=== PATIENT | male | born 1960 | race Caucasian/White ===

== ENCOUNTER → 2018-06-03 08:36 | Outpatient (CLI) | payer OTHER, SELFPAY ==
--- NOTE | 2018-06-03 | DI.RAD.S_ITS ---
PROCEDURE: XR HIP W PEL IF DONE LT 2V INDICATIONS: LEFT HIP PAIN TECHNIQUE: 2 views of the hip were acquired. COMPARISON: None. FINDINGS: Bones: No fractures or dislocations. No suspicious bony lesions. The visualized pelvic ring appears intact. Soft tissues: No suspicious soft tissue calcifications or masses. IMPRESSION: No acute radiographic findings. If there is continued pain, followup exam or additional imaging such as MRI or CT could be performed for further assessment. Dictated by: Michelle Johns M.D. on 06/03/2018 at 10:14 Approved by: Michelle Johns M.D. on 06/03/2018 at 10:15
== END ==
PROVIDERS: PCP Family Medicine; Visit Provider Family Medicine
DX: M25.552 Pain in left hip (principal)
CPT/HCPCS: 73502

== ENCOUNTER → 2018-06-17 10:06 | Outpatient (CLI) | payer OTHER, SELFPAY ==
--- NOTE | 2018-06-17 | DI.RAD.S_ITS ---
PROCEDURE: XR CERVICAL SPINE 2V OR 3V INDICATIONS: NUMBNESS AND TINGLING LEFT NECK FOR 8 MONTHS TECHNIQUE: 3 view(s) of the cervical spine were acquired. COMPARISON: [facility], , CLAVICLE RIGHT 2 VIEWS, 06/22/2008, 10:26. FINDINGS: Bones: No fractures or dislocations to the C7 level. The lateral masses of C1 appear intact on the odontoid view. No suspicious bony lesions. Diffuse facet arthropathy. Diffuse moderate disc space narrowing throughout the cervical spine with relative sparing of C2-C3. Endplate sclerosis and spurring. Trace retrolisthesis of C4 on C5 trace anterolisthesis of C2 on C3. Soft tissues: No prevertebral soft tissue swelling. Bilateral carotid calcifications IMPRESSION: Diffuse multilevel cervical disc degeneration as above, and facet arthropathy. Trace retrolisthesis of C4 on C5 trace anterolisthesis of C2 on C3. Dictated by: Curt Gipson M.D. on 06/17/2018 at 11:53 Approved by: Curt Gipson M.D. on 06/17/2018 at 12:04
== END ==
PROVIDERS: PCP Family Medicine; Visit Provider Family Medicine
DX: R20.0 Anesthesia of skin (principal); R20.2 Paresthesia of skin; M50.30 Other cervical disc degeneration, unspecified cervical region; M47.816 Spondylosis without myelopathy or radiculopathy, lumbar region
CPT/HCPCS: 72040

== ENCOUNTER 2019-01-23 07:10 | Emergency (ER) | payer OTHER, SELFPAY ==
[2019-01-23 07:20] VITALS: BP 131/72; PULSE 70; RESP 18; TEMP 36.6; O2SAT 97; BMI 25.8
--- NOTE | 2019-01-23 07:23 | ED.UPPEXIN ---
HPI - Extremity Injury (Upper) General Chief Complaint: Extremity Injury, Upper Stated Complaint: left arm swelling/pain Time Seen by Provider: 01/23/19 07:13 Source: patient Mode of arrival: ambulatory Limitations: no limitations History of Present Illness HPI narrative: Pleasant 58-year-old male comes to the emergency department with complaint of pain in his left forearm and swelling of the lower upper arm. Patient states yesterday he was lifting a 4 x 8, he states that he felt pressure and then a pop and pain in his distal arm just before the elbow. He states that he noticed sudden swelling of the arm and he feels like he has a little bit weaker on that side compared to the other. Patient states the pain is resolved. His symptoms have not improved. This occurred yesterday in the afternoon but he came in for evaluation. He denies any numbness or tingling in his arm except right over the site of swelling. He has not noted any bruising. He denies any other medical problems, no prior surgeries, no allergies to medications. No tobacco, drinks alcohol daily 1-3 drinks, no illicit. This occurred at [employer] that he works at. Review of Systems Review of Systems ROS Unobtainable: All systems reviewed & are unremarkable except as noted in HPI and below Constitutional Denies chills, Denies fever(s), Denies lethargy and Denies weakness Musculoskeletal Reports as per HPI, Denies arthralgias, Denies limited range of motion, Denies numbness, Denies tingling and Reports other (left arm swollen proximal to elbow) Integumentary/Breasts Denies rash, Denies unusual bruising and Denies wounds Neurologic Denies numbness, Denies tingling and Denies weakness [facility] Social History (Updated 01/23/19 @ 07:25 by Maribeth Pfeiffer DO) Smoking Status: Former smoker alcohol intake: current substance use type: does not use Exam Narrative Exam Narrative: GENERAL: Alert and oriented x three, thin, well-appearing male in no acute distress. HEENT: Head normocephalic, atraumatic, EOMI, pupils reactive, face symmetric, moist mucous membranes NECK: Supple, full range of motion CARDIOVASCULAR: Regular rate and rhythm without murmurs, rubs or gallops. RESPIRATORY: Breath sounds equal bilaterally, no wheezes rales or rhonchi. ABDOMEN: Soft, nontender. Normoactive bowel sounds all 4 quadrants. No guarding or rebound, rigidity, no mass EXTREMITIES: Normal range of motion although patient is anxious about fully extending his arm, he states that he feels like there is a tug, patient is able to flex without issue, he has no bony tenderness with palpation of the upper extremity. He has 2+ radial pulses bilaterally. Extender is equal bilaterally. Patient has mild decrease in strength left in comparison to right with straight arm raise and flexion at the elbow, no clubbing or edema. Neurovascularly intact NEUROLOGICAL: Cranial nerves II through XII grossly intact. Moving all extremities SKIN: Warm, dry, no petechiae, no rashes or lesions. Initial Vital Signs Initial Vital Signs: Vital Signs Temperature 97.8 F 01/23/19 07:20 Pulse Rate 70 01/23/19 07:20 Respiratory Rate 18 01/23/19 07:20 Blood Pressure 131/72 01/23/19 07:20 Pulse Oximetry 97 01/23/19 07:20 Course Vital Signs - 8 hr 01/23/19 07:20 Temperature 97.8 F Pulse Rate 70 Respiratory Rate 18 Blood Pressure 131/72 Pulse Oximetry 97 MDM - Extremity Injury (Upper) MDM Narrative Medical decision making narrative: I spoke with Dr. Robb who for patient to be in a sling, for able to obtain MRI for a proximal biceps tear this would be helpful. Patient and I discussed plan for follow-up outpatient. Unable to in MRI at this time and patient is not sure if he is doing this through L&I at this time. Patient is otherwise neurologically intact. Precautions were given as well as a work note until he is cleared by Orthopedic surgery. Discharge Plan Departure Patient Disposition: Home Clinical Impression: Biceps tendon tear Discharge Date/Time: 01/23/19 08:09 Interventions: ED Discharge Assessment Last Done: 01/23/19 08:09 Activity Restrictions/Additional Instructions: Follow-up with Orthopedic surgery in the next 3-5 days. Call for an appointment today. You may take ibuprofen up to 800 mg and/or Tylenol up to a 1000 mg every 8 hours. Elevated affected body part to decrease swelling as needed. No heavy lifting or straining your arm. OK to use ice pack on the affected body part. Use for 15-20 minutes each time, for 5-6x per day. If you develop worsening pain, numbness, tingling, discoloration of the affected body part, loosen sling as needed, and either see your doctor for an urgent re-assessment, or return to the Emergency Department. Return to the Emergency Department for any new or worsening symptoms. Referrals: Jalil Espinosa MD [Primary Care Provider] - Jim Robb MD [Physician] - Stand Alone Forms: Work Release Note
--- NOTE | 2019-01-23 07:30 | ED_ITS ---
HPI - Extremity Injury (Upper) General Chief Complaint: Extremity Injury, Upper Stated Complaint: left arm swelling/pain Time Seen by Provider: 01/23/19 07:13 Source: patient Mode of arrival: ambulatory Limitations: no limitations History of Present Illness HPI narrative: Pleasant 58-year-old male comes to the emergency department with complaint of pain in his left forearm and swelling of the lower upper arm. Pat des states yesterday he was lifting a 4 x 8, he states that he felt pressure and then a pop and pain in his distal arm just before the elbow. He states that he noticed sudden swelling of the arm and he feels like he has a little bit weaker on that side compared to the other. Patient states the pain is resolved. His symptoms have not improved. This occurred yesterday in the afternoon but he came in for evaluation. He denies any numbness or tingling in his arm except right over the site of swelling. He has not noted any bruising. He denies any other medical problems, no prior surgeries, no allergies to medications. No tobacco, drinks alcohol daily 1-3 drinks, no illicit. This occurred at [employer] that he works at. Review of Systems Review of Systems ROS Unobtainable: All systems reviewed & are unremarkable except as noted in HPI and below Constitutional Denies chills, Denies fever(s), Denies lethargy and Denies weakness Musculoskeletal Reports as per HPI, Denies arthralgias, Denies limited range of motion, Denies numbness, Denies tingling and Reports other (left arm swollen proximal to elbow) Integumentary/Breasts Denies rash, Denies unusual bruising and Denies wounds Neurologic Denies numbness, Denies tingling and Denies weakness REPLACED BY [facility] Social History (Updated 01/23/19 @ 07:25 by Maribeth Pfeiffer DO) Smoking Status: Former smoker alcohol intake: current substance use type: does not use Exam Narrative Exam Narrative: GENERAL: Alert and oriented x three, thin, well-appearing male in no acute distress. HEENT: Head normocephalic, atraumatic, EOMI, pupils reactive, face symmetric, moist mucous membranes NECK: Supple, full range of motion CARDIOVASCULAR: Regular rate and rhythm without murmurs, rubs or gallops. RESPIRATORY: Breath sounds equal bilaterally, no wheezes rales or rhonchi. ABDOMEN: Soft, nontender. Normoactive bowel sounds all 4 quadrants. No guarding or rebound, rigidity, no mass EXTREMITIES: Normal range of motion although patient is anxious about fully extending his arm, he states that he feels like there is a tug, patient is able to flex without issue, he has no bony tenderness with palpation of the upper extremity. He has 2+ radial pulses bilaterally. Registered Massage Therapist is equal bilaterally. Patient has mild decrease in strength left in comparison to right with straight arm raise and flexion at the elbow, no clubbing or edema. Neurovascularly intact NEUROLOGICAL: Cranial nerves II through XII grossly intact. Moving all extremities SKIN: Warm, dry, no petechiae, no rashes or lesions. Initial Vital Signs Initial Vital Signs: Vital Signs Temperature 97.8 F 01/23/19 07:20 Pulse Rate 70 01/23/19 07:20 Respiratory Rate 18 01/23/19 07:20 Blood Pressure 131/72 01/23/19 07:20 Pulse Oximetry 97 01/23/19 07:20 Course Vital Signs - 8 hr 01/23/19 07:20 Temperature 97.8 F Pulse Rate 70 Respiratory Rate 18 Blood Pressure 131/72 Pulse Oximetry 97 MDM - Extremity Injury (Upper) MDM Narrative Medical decision making narrative: I spoke with Dr. Robb who for patient to be in a sling, for able to obtain MRI for a proximal biceps tear this would be helpful. Patient and I discussed plan for follow-up outpatient. Unable to in MRI at this time and patient is not sure if he is doing this through L&I at this time. Patient is otherwise neurologically intact. Precautions were given as well as a work note until he is cleared by Orthopedic surgery. Discharge Plan Departure Patient Disposition: Home Clinical Impression: Biceps tendon tear Discharge Date/Time: 01/23/19 08:09 Interventions: ED Discharge Assessment Last Done: 01/23/19 08:09 Activity Restrictions/Additional Instructions: Follow-up with Orthopedic surgery in the next 3-5 days. Call for an appointment today. You may take ibuprofen up to 800 mg and/or Tylenol up to a 1000 mg every 8 hours. Elevated affected body part to decrease swelling as needed. No heavy lifting or straining your arm. OK to use ice pack on the affected body part. Use for 15-20 minutes each time, for 5-6x per day. If you develop worsening pain, numbness, tingling, discoloration of the affected body part, loosen sling as needed, and either see your doctor for an urgent re-assessment, or return to the Emergency Department. Return to the Emergency Department for any new or worsening symptoms. Referrals: Jalil Espinosa MD [Primary Care Provider] - Jim Robb MD [Physician] - Stand Alone Forms: Work Release Note
[2019-01-23 08:09] VITALS: BP 109/74; PULSE 70; RESP 18; O2SAT 99
== END 2019-01-23 08:09 | disposition home or self-care (01) ==
PROVIDERS: Emergency Provider Emergency Medicine; Family Provider Family Medicine; PCP Family Medicine
DX: S46.212A Strain of muscle, fascia and tendon of other parts of biceps, left arm, initial encounter (principal); X50.9XXA Other and unspecified overexertion or strenuous movements or postures, initial encounter; Y99.0 Civilian activity done for income or pay
CPT/HCPCS: 99282

== ENCOUNTER 2020-02-16 09:59 | Emergency (ER) | payer OTHER, SELFPAY ==
[2020-02-16 10:01] VITALS: BP 171/94; PULSE 94; RESP 11; TEMP 37.1; O2SAT 96; BMI 27.1
--- NOTE | 2020-02-16 10:20 | ED.UPPEXIN ---
HPI - Extremity Injury (Upper) General Chief Complaint: Extremity Injury, Upper Stated Complaint: Injured right shoulder at work Time Seen by Provider: 02/16/20 10:13 Source: patient Mode of arrival: Ambulatory Limitations: no limitations History of Present Illness HPI narrative: Patient complains of right shoulder pain due to injury at work yesterday. Help lifting a door. Patient is right handed. Denies any numbness tingling or weakness. No elbow wrist or hand pain. Pain is anterior lateral right shoulder. No skin injury. Pain with abduction and forward flexion. Patient seen by Orthopedics for work related injury 2 years ago for the left bicep. He does have orthopedic care through [facility]. Blood pressure noted. No history of high blood pressure. Patient states right shoulder does hurt a lot. May be pain driven elevated blood pressure. Related Data Allergies Allergy/AdvReac Type Severity Reaction Status Date / Time No Known Drug Allergies Allergy Verified 02/16/20 10:04 Review of Systems Review of Systems Narrative: GENERAL: Denies chills, fatigue, malaise, fever, sweats. MUSCULOSKELETAL: Complaint joint pain and muscle pain SKIN: Denies rash, skin lesions, or other NEUROLOGIC: Denies weakness, or numbness or tingling PSYCHIATRIC: No concerning psychosocial issues. ROS Unobtainable: All systems reviewed & are unremarkable except as noted in HPI and below Patient History Social History Smoking Status: Current some day smoker alcohol intake: current substance use type: does not use Smoking Status: Current some day smoker alcohol intake frequency: 3 or more drinks per day Substance Use Type: does not use Exam Narrative Exam Narrative: GENERAL: patient appears stated age. Well-nourished, well-developed patient, in no distress, not toxic HEAD: Atraumatic. Normocephalic. EXTREMITIES: Examination right upper extremity limb is warm soft and pink with strong lab assistant in radial pulse with light touch intact to the deltoid fingertips and thumb. Nontender elbow and wrist. Strong lab assistant.. Mild tenderness of the anterior lateral right shoulder, no drop upper deformity. Increased pain with forward flexion and abduction of the shoulder. Increased pain with raising hand above the head but is able to do so. Pain with bring right hand behind back NEURO: AOx3. SKIN: No rash or erythema of visible areas PSYCH: Not anxious, is cooperative Initial Vital Signs Initial Vital Signs: Vital Signs Temperature 98.7 F 02/16/20 10:01 Pulse Rate 94 H 02/16/20 10:01 Respiratory Rate 11 L 02/16/20 10:01 Blood Pressure 171/94 H 02/16/20 10:01 Pulse Oximetry 96 02/16/20 10:01 Course Orders Ordered: ED Orders 02/16/20 10:19 XR shoulder RT min 2V Stat Reevaluation(s) Reevaluation #1: Pain is controlled. Blood pressure repeated. Blood pressure improved. L and I form completed by nd Time: 11:57 Vital Signs Vital signs: Vital Signs - 8 hr 02/16/20 10:01 02/16/20 11:59 02/16/20 12:05 Temperature 98.7 F Pulse Rate 94 H 80 81 Respiratory Rate 11 L 16 18 Blood Pressure 171/94 H 145/90 H 149/96 H Pulse Oximetry 96 98 96 MDM - Extremity Injury (Upper) Differential Diagnosis Differential diagnosis: Likely other (Right shoulder strain/rotator strain/muscle strain) Imaging Data Extremity x-ray #1: Radiologist's Impression: [address] [address] XRay Report Signed Patient: Royce Figueroa JMR#: [id number] : 9Acct:[id number] Age/Sex: 59 / MDate of Service: 02/16/20 Loc: ED Accession Number: [id number] Procedure: XR shoulder RT min 2V Ordering Provider: Jose Cisneros MD PROCEDURE: XR SHOULDER RT MIN 2V INDICATIONS: pain/injury TECHNIQUE: 3 views of the shoulder were acquired. COMPARISON: [facility], [facility], CLAVICLE RIGHT 2 VIEWS, 06/22/2008, 10:26. FINDINGS: Bones: No definite fractures or dislocations. Well corticated ossicle adjacent to the AC joint is unchanged since 2007. No suspicious bony lesions. Visualized ribs appear intact. Soft tissues: No suspicious soft tissue calcifications. IMPRESSION: No acute osseous abnormality. 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 Dictated by: Moises Moseley M.D. on 02/16/2020 at 11:28 Approved by: Moises Moseley M.D. on 02/16/2020 at 11:32 MDM Narrative Medical decision making narrative: Patient able to contact his orthopedic provider from previous work related injury. Providers in [place]. Will have patient follow-up with the same provider Discharge Plan Departure Patient Disposition: Home Clinical Impression: Right shoulder strain Qualifiers: Encounter type: initial encounter Qualified Code(s): S46.911A - Strain of unspecified muscle, fascia and tendon at shoulder and upper arm level, right arm, initial encounter Discharge Date/Time: 02/16/20 12:06 Instructions: DI for Shoulder Sprain Activity Restrictions/Additional Instructions: See family doctor or call [facility] phone number is [phone] for office recheck regarding workmen's compensation. Work note for light duty left arm use only has been provided. May use ibuprofen or Tylenol for pain. Return if worse or if any questions or concerns Referrals: Jalil Espinosa MD [Primary Care Provider] - Stand Alone Forms: Work Release Note
[2020-02-16 11:59] VITALS: BP 145/90; PULSE 80; RESP 16; O2SAT 98
[2020-02-16 12:05] VITALS: BP 149/96; PULSE 81; RESP 18; O2SAT 96
== END 2020-02-16 12:06 | disposition home or self-care (01) ==
PROVIDERS: Emergency Provider Emergency Medicine; Family Provider Family Medicine; PCP Family Medicine
DX: S46.911A Strain of unspecified muscle, fascia and tendon at shoulder and upper arm level, right arm, initial encounter (principal); X50.0XXA Overexertion from strenuous movement or load, initial encounter; Y99.0 Civilian activity done for income or pay
CPT/HCPCS: 73030; 99283

== ENCOUNTER 2022-01-16 07:37 | Emergency (ER) | payer OTHER, SELFPAY ==
[2022-01-16 07:47] VITALS: BP 140/80; PULSE 93; RESP 12; TEMP 36.9; O2SAT 96; BMI 26.8
--- NOTE | 2022-01-16 07:51 | ED_ITS ---
HPI - Skin/Abscess/Foreign Bdy General Chief complaint: Extremity Problem,Nontraumatic Stated complaint: LARGE lump on left arm suddenly Time Seen by Provider: 01/16/22 07:43 Source: patient Mode of arrival: EMS History of Present Illness HPI narrative: Patient is a harvinder healthy 61-year-old male who presents with sudden onset of swelling of left elbow. He works in a [employer] are yd he denies hitting it. He said it was a normal elbow yesterday he did work a lot he does lot of lifting. He woke up this morning with significantly swollen. He has no redness no fever no pain with movement. Related Data Allergies Allergy/AdvReac Type Severity Reaction Status Date / Time No Known Drug Allergies Allergy Verified 01/16/22 07:50 Review of Systems Review of Systems Narrative: GENERAL: Denies chills,fever HEENT: Denies throat pain RESPIRATORY: Denies dyspnea, cough, wheezing CARDIOVASCULAR: Denies chest pain, palpitations GASTROINTESTINAL: Denies nausea, vomiting MUSCULOSKELETAL: See HPI SKIN: No rash, no laceration, no pruritus NEUROLOGIC: Denies weakness, dizziness, headache, numbness 8 point review of systems is negative except for those stated above and HPI Patient History Social History Smoking Status: Former smoker alcohol intake: current substance use type: does not use Smoking Status: Former smoker alcohol intake frequency: 3 or more drinks per day Substance Use Type: does not use Exam Initial Vital Signs Initial Vital Signs: Vital Signs Temperature 98.4 F 01/16/22 07:47 Pulse Rate 93 H 01/16/22 07:47 Respiratory Rate 12 01/16/22 07:47 Blood Pressure 140/80 01/16/22 07:47 Pulse Oximetry 96 01/16/22 07:47 Oxygen Delivery Method 01/16/22 07:47 GENERAL: Denies chills,fever HEENT: Denies throat pain RESPIRATORY: Denies dyspnea, cough, wheezing CARDIOVASCULAR: Denies chest pain, palpitations GASTROINTESTINAL: Denies nausea, vomiting MUSCULOSKELETAL: See HPI SKIN: No rash, no laceration, no pruritus NEUROLOGIC: Denies weakness, dizziness, headache, numbness 8 point review of systems is negative except for those stated above and HPI Procedures Bursa Procedure Side of body: left Site of Procedure: olecranon bursa XRAY Obtained: normal Antisepsis Used: Chlorhexidine Local Anesthetic: lidocaine 2% Amount of anesthesia used (mL): 10 Fluid obtained (mL): 0 Patient Tolerated Procedure: Well and No complications Additional Comments: Failed attempt. Use ultrasound as guidance as well. Course Orders Ordered: ED Orders 01/16/22 07:55 XR elbow LT min 3V Stat Discontinued Medications Ibuprofen (Ibuprofen 400 Mg Tablet) 800 mg PO NOW ONE Stop: 01/16/22 09:26 Last Admin: 01/16/22 09:32 Dose: 800 mg Documented By: LISE Lidocaine HCl (Lidocaine 2% Inj Mdv) 1 ml SUBCUT NOW ONE Stop: 01/16/22 07:52 Last Admin: 01/16/22 07:53 Dose: 1 ml Documented By: RAMA Vital Signs Vital signs: Vital Signs - 8 hr 01/16/22 07:47 Temperature 98.4 F Pulse Rate 93 H Respiratory Rate 12 Blood Pressure 140/80 Pulse Oximetry 96 Oxygen Delivery Method Room Air MDM - Skin/Abscess/Foreign Bdy Imaging Data Extremity x-ray #1: Radiologist's Impression: [address] [address] XRay Report Signed Patient: Royce Figueroa MR#: [id number] : 1960 Acct:[id number] Age/Sex: 61 / M Date of Service: 01/16/22 Loc: ED Accession Number: [id number] ?? Procedure: XR elbow LT min 3V Ordering Provider: Lore Perla D.O. PROCEDURE:? XR ELBOW LT MIN 3V ? INDICATIONS:? swelling no trauma ? TECHNIQUE:? 3 views of the elbow were acquired.? ? COMPARISON:? None. ? FINDINGS:? ? Bones:? No fractures or dislocations.? No suspicious bony lesions.? Small degenerative osteophytes are noted the elbow. ? Soft tissues:? No elbow joint effusion.? No suspicious soft tissue calcifications.? ? ? IMPRESSION:? No visualized acute fracture or dislocation. However, if clinical concern and/or pain persist, short interval imaging followup in 7-10 days is recommended, as occult injury cannot be definitively excluded. ? ? Dictated by: Keerthi Allan M.D. on 01/16/2022 at 9:08 ? ? MDM Narrative Medical decision making narrative: Patient had sudden onset swelling of left elbow seems to be more of a bursitis and fluid like. However failed attempt even with ultrasound guidance of drainage. It is not erythematous at this time not septic. However instructed patient to monitor very closely. based on history seems like it should be fluid however ultrasound guided drainage did show a clear pocket possible lipoma x-ray does not show a joint effusion. Discharge Plan Departure Patient Disposition: Home Clinical Impression: Bursitis Instructions: Bursitis Activity Restrictions/Additional Instructions: *You have been diagnosed with bursitis *What to do: At this time we are unsuccessful in getting fluid out of her elbow. Please continue to monitor apply pressure ibuprofen as needed. *Continue to take medications as directed Ibuprofen 600 mg every 6 hours if needed for [id number] *Follow up with your primary care provider in 2-3 days or call [phone] *Return to ER if you should have redness fever decreased range of motion numbness tingling [or] any new, worsening or concerning symptoms Referrals: Jalil Espinosa MD [Primary Care Provider] - Visit Report Forms: Patient Portal/API
[2022-01-16] MEDS: LIDOCAINE 2% INJ MDV 1 ML SUBCUT (07:53)
--- NOTE | 2022-01-16 07:55 | DI.RAD.S_ITS ---
PROCEDURE: XR ELBOW LT MIN 3V INDICATIONS: swelling no trauma TECHNIQUE: 3 views of the elbow were acquired. COMPARISON: None. FINDINGS: Bones: No fractures or dislocations. No suspicious bony lesions. Small degenerative osteophytes are noted the elbow. Soft tissues: No elbow joint effusion. No suspicious soft tissue calcifications. IMPRESSION: No visualized acute fracture or dislocation. However, if clinical concern and/or pain persist, short interval imaging followup in 7-10 days is recommended, as occult injury cannot be definitively excluded. Dictated by: Keerthi Allan M.D. on 01/16/2022 at 9:08 Approved by: Keerthi Allan M.D. on 01/16/2022 at 9:08
[2022-01-16] MEDS: IBUPROFEN 400 MG TABLET 800 MG PO (09:32)
== END 2022-01-16 09:44 | disposition home or self-care (01) ==
PROVIDERS: Emergency Provider Emergency Medicine; Family Provider Family Medicine; PCP Family Medicine
DX: M70.32 Other bursitis of elbow, left elbow (principal)
CPT/HCPCS: 20605; 73080; 99283

== ENCOUNTER → 2022-01-23 16:29 | Outpatient (CLI) | payer OTHER, SELFPAY ==
[2022-01-23 17:32] LABS: Add Manual Diff / Slide Review NO; Basophils Absolute Auto 100 /uL (0-100); Basophils Percent Auto 1.8 % (0-2); Eosinophils Absolute Auto 0 /uL (0-450); Eosinophils Percent Auto 0.5 % (2-4); Hematocrit 38.2 % (41-53); Hemoglobin 13.5 g/dL (13.5-17.5); Lymphocytes Absolute Auto 1800 /uL (1100-4500); Lymphocytes Percent Auto 29.7 % (25-40); Mean Corpuscular HGB Conc 35.3 % (30-36); Mean Corpuscular Hemoglobin 32.2 PG (26-34); Mean Corpuscular Volume 91.1 fL (80-100); Monocytes Absolute Auto 600 /uL (0-900); Monocytes Percent Auto 10.7 % (3-14); Neutrophils Absolute Auto 3400 /uL (1500-7000); Neutrophils Percent Auto 57.3 % (50-75); Platelet Count 217 X10^3/uL (150-400); Red Cell Distribution Width 14.1 % (11.6-14.8); White Blood Cell Count 5.9 X10^3/uL (4.5-11.0)
[2022-01-23 18:23] LABS: Alanine Aminotransferase 163 IU/L (<50); Albumin 3.9 g/dL (3.5-5.0); Albumin Globulin Ratio 1.3 (1.0-2.8); Alkaline Phosphatase 123 U/L (38-126); Aspartate Aminotransferase 407 IU/L (17-59); BUN Creatinine Ratio 25.3 (6-22); Bilirubin Total 1.2 mg/dL (0.2-1.3); Blood Urea Nitrogen 21 mg/dL (9-20); C-Reactive Protein Quant < 0.5 mg/dL (<1.0); Calcium 8.5 mg/dL (8.4-10.2); Carbon Dioxide 23 mmol/L (22-32); Chloride 105 mmol/L (98-107); Estimated Glomerular Filt Rate > 60 mL/min (>60); Globulin 3.1 g/dL (1.7-4.1); Glucose 102 mg/dL (80-110)
[2022-01-23 18:40] LABS: Erythrocyte Sedimentation Rate 7 MM/HR (0-15)
[2022-01-23 19:04] LABS: HEMOLYSIS 26 (0-50)
[2022-01-23 19:20] LABS: Potassium 3.8 mmol/L (3.4-5.1); Sodium 135 mmol/L (137-145)
== END ==
PROVIDERS: Family Provider Family Medicine; PCP Family Medicine; Referring Provider Family Medicine; Visit Provider Family Medicine
DX: M70.22 Olecranon bursitis, left elbow (principal); M79.89 Other specified soft tissue disorders
CPT/HCPCS: 36415; 80053; 85025; 85651; 86140

== ENCOUNTER → 2022-10-17 08:33 | Outpatient (CLI) | payer OTHER, SELFPAY ==
--- NOTE | 2022-10-17 | DI.US.S_ITS ---
LIMITED ULTRASOUND OF LEFT BREAST AND AXILLA: 10/17/2022 CLINICAL: Palpable left breast lump. Comparison is made to exam dated: 10/17/2022 mammogram - [facility]. Color flow ultrasound of the left breast axilla was performed on the areas of interest. Chacko scale images of the real-time examination were reviewed. There is gynecomastia in the left breast that correlates with palpable abnormality. IMPRESSION: BENIGN There is no sonographic evidence of malignancy. Clinical follow up for gynecomastia recommended. This exam was interpreted at Station ID: [id number]. Electronically Signed By: Michelle Johns M.D. lk/:10/17/2022 09:54:43 letter sent: Clinical Evaluation Ultrasound BI-RADS: 2 Benign
--- NOTE | 2022-10-17 | DI.MG.S_ITS ---
MALE BILATERAL DIGITAL DIAGNOSTIC MAMMOGRAM 3D/2D: 10/17/2022 CLINICAL: Left breast lump aerola mass. No prior exams were available for comparison. There is gynecomastia in the left breast that correlates with palpable abnormality. No significant masses, calcifications, or other findings are seen in either breast. IMPRESSION: INCOMPLETE: NEEDS ADDITIONAL IMAGING EVALUATION Probable left gynecomastia. However, a precautionary targeted ultrasound of the left breast is recommended and will be performed immediately following this exam. There is no mammographic evidence of malignancy. This exam was interpreted at Station ID: [id number]. NOTE: For mammograms, a report in lay terms will be sent to the patient. Approximately 15% of breast malignancies will not be visualized mammographically. In the management of a palpable breast mass, a negative mammogram must not discourage biopsy of a clinically suspicious lesion. Electronically Signed By: Michelle Johns M.D. lk/:10/17/2022 09:22:19 ACR BI-RADS Category 0: Incomplete 3340F
== END ==
PROVIDERS: Family Provider Family Medicine; PCP Family Medicine; Referring Provider Registered Nurse; Visit Provider Registered Nurse
DX: N63.42 Unspecified lump in left breast, subareolar (principal); R92.8 Other abnormal and inconclusive findings on diagnostic imaging of breast; N62 Hypertrophy of breast
CPT/HCPCS: 76642; 77066; G0279

== ENCOUNTER 2023-02-13 07:31 | Emergency (ER) | payer OTHER, SELFPAY ==
[2023-02-13 07:40] VITALS: BP 143/80; PULSE 70; RESP 14; TEMP 36.9; O2SAT 97; BMI 27.3
--- NOTE | 2023-02-13 07:49 | DI.RAD.S_ITS ---
PROCEDURE: XR FOREARM LT 2V INDICATIONS: lifting injury TECHNIQUE: 2 views of the forearm were acquired. COMPARISON: None. FINDINGS: Bones: No fractures or dislocations. No suspicious bony lesions. Soft tissues: No suspicious soft tissue calcifications or masses. IMPRESSION: No evidence acute bony abnormality. Dictated by: Kevin aBltazar M.D. on 02/13/2023 at 8:46 Approved by: Kevin Baltazar M.D. on 02/13/2023 at 8:46
[2023-02-13 09:04] VITALS: BP 138/77; PULSE 78; RESP 18; O2SAT 98
--- NOTE | 2023-02-13 09:57 | DI.MRI.S_ITS ---
PROCEDURE: MR FOREARM LT WO CON INDICATIONS: pain/injury TECHNIQUE: Noncontrast coronal and sagittal T1 spin echo and STIR; axial T1 spin echo and T2 fast spin echo with fat saturation through the left forearm COMPARISON: [facility], CR, XR FOREARM LT 2V, 02/13/2023, 8:01. FINDINGS: Image quality: Excellent. Bones: The visualized bone marrow demonstrates normal signal on all sequences. The overlying cortex appears intact. No fractures lines or intra-osseous lesions. Soft tissues: There is a fluid-filled defect within the anterior portion of the brachioradialis muscle within the proximal forearm at approximately the level of the radial tuberosity. The defect measures approximately 3.2 cm in length with surrounding intramuscular and subcutaneous soft tissue edema. There is severe fatty infiltration of the pulmonary is longus muscle that is most likely chronic. The distal biceps tendon and distal brachialis insertion are intact. The forearm musculature is otherwise normal in signal intensity and bulk. No soft tissue mass. IMPRESSION: Partial tearing of the anterior portion of the brachioradialis muscle at the level the proximal forearm with separation of muscle fibers by up to 3.2 cm and surrounding soft tissue edema. The majority of the brachioradialis muscle remains intact. Approved by: Federico Nicole M.D. on 02/13/2023 at 11:01
--- NOTE | 2023-02-13 09:58 | ED.UPPEXIN ---
HPI - Extremity Injury (Upper) General Chief Complaint: Extremity Injury, Upper Stated Complaint: lt arm injury Time Seen by Provider: 02/13/23 09:54 Source: patient Mode of arrival: Ambulatory History of Present Illness HPI narrative: Patient is ambidextrous. Complains of left medial forearm injury at work yesterday. He works for a [employer]. He was lifting heavy rebar and felt a strain in his medial left proximal forearm. There is bruising to this area. No numbness or tingling. Patient is not on any blood thinners. No previous injury to the forearm. Has pain with flexion of the wrist and carrying things. Related Data Allergies Allergy/AdvReac Type Severity Reaction Status Date / Time No Known Drug Allergies Allergy Verified 01/16/22 07:50 Review of Systems Review of Systems Narrative: GENERAL: negative chills, fatigue, malaise, fever, sweats. HEENT: negative sinus pain, ear pain, sore throat RESPIRATORY: negative dyspnea, cough CARDIOVASCULAR: negative chest pain, palpitations GASTROINTESTINAL: negative nausea, vomiting, abdominal pain : negative dysuria, frequency, hematuria MUSCULOSKELETAL: Positive muscle or bony pain SKIN: negative rash, skin lesions NEUROLOGIC: negative weakness, numbness ROS Unobtainable: All systems reviewed & are unremarkable except as noted in HPI and below Patient History Social History Smoking Status: Former smoker alcohol intake: current substance use type: does not use Smoking Status: Former smoker alcohol intake frequency: 3 or more drinks per day Alcohol type: beer and hard liquor Substance Use Type: does not use Exam Narrative Exam Narrative: GENERAL: in no distress, not toxic not dyspneic HEAD: Normocephalic. EYES: Pupils equal round ENT: Mucous membranes moist. EXTREMITIES: No gross deformities. Examination left upper extremity elbow to fingertips exposed. No gross deformity. Strong ecotherapist and radial pulse with light touch intact to thumb and fingers. Nontender elbow and wrist. There is bruising ecchymosis to the proximal volar forearm. Pain with flexion of the wrist. However has full active range of motion with forearm supination pronation, able to flex and extend at the elbow. NEURO: AOx4. SKIN: Warm and dry PSYCH: Not anxious, is cooperative Initial Vital Signs Initial Vital Signs: Vital Signs Temperature 98.5 F 02/13/23 07:40 Pulse Rate 70 02/13/23 07:40 Respiratory Rate 14 02/13/23 07:40 Blood Pressure 143/80 H 02/13/23 07:40 Pulse Oximetry 97 02/13/23 07:40 Oxygen Delivery Method Room Air 02/13/23 07:40 Course Orders Ordered: ED Orders 02/13/23 07:49 XR forearm LT 2V Stat 02/13/23 09:57 MR forearm LT wo con Stat Vital Signs Vital signs: Vital Signs - 8 hr 02/13/23 07:40 02/13/23 09:04 02/13/23 13:00 Temperature 98.5 F Pulse Rate 70 78 80 Respiratory Rate 14 18 20 Blood Pressure 143/80 H 138/77 152/86 H Pulse Oximetry 97 98 100 Oxygen Delivery Method Room Air Room Air Room Air MDM - Extremity Injury (Upper) Imaging Data Extremity x-ray #1: Radiologist's Impression: [address] [address] Magnetic Resonance Report Signed Patient: Royce Figueroa MR#: [id number] : 1960 Acct:[id number] Age/Sex: 62 / M Date of Service: 02/13/23 Loc: ED Accession Number: [id number] ?? Procedure: MR forearm LT wo con Ordering Provider: Jose Cisneros MD PROCEDURE:? MR FOREARM LT WO CON ? INDICATIONS:? pain/injury ? TECHNIQUE: Noncontrast coronal and sagittal T1 spin echo and STIR; axial T1 spin echo and T2 fast spin echo with fat saturation through the left forearm ? COMPARISON:? [facility], CR, XR FOREARM LT 2V, 02/13/2023, 8:01. ? FINDINGS:? Image quality:? Excellent.? ? Bones:? The visualized bone marrow demonstrates normal signal on all sequences.? The overlying cortex appears intact.? No fractures lines or intra-osseous lesions.? ? Soft tissues:? There is a fluid-filled defect within the anterior portion of the brachioradialis muscle within the proximal forearm at approximately the level of the radial tuberosity.? The defect measures approximately 3.2 cm in length with surrounding intramuscular and subcutaneous soft tissue edema.? There is severe fatty infiltration of the pulmonary is longus muscle that is most likely chronic.? The distal biceps tendon and distal brachialis insertion are intact.? The forearm musculature is otherwise normal in signal intensity and bulk.? No soft tissue mass. ? IMPRESSION:? Partial tearing of the anterior portion of the brachioradialis muscle at the level the proximal forearm with separation of muscle fibers by up to 3.2 cm and surrounding soft tissue edema.? The majority of the brachioradialis muscle remains intact. ? Approved by: Federico Nicole M.D. on 02/13/2023 at 11:01? Extremity x-ray #2: Radiologist's Impression: [address] [address] XRay Report Signed Patient: Royce Figueroa MR#: [id number] : 1960 Acct:[id number] Age/Sex: 62 / M Date of Service: 02/13/23 Loc: ED Accession Number: [id number] ?? Procedure: XR forearm LT 2V Ordering Provider: Jose Cisneros MD PROCEDURE:? XR FOREARM LT 2V ? INDICATIONS:? lifting injury ? TECHNIQUE:? 2 views of the forearm were acquired.? ? COMPARISON:? None. ? FINDINGS:? ? Bones:? No fractures or dislocations.? No suspicious bony lesions.? ? Soft tissues:? No suspicious soft tissue calcifications or masses.? ? ? IMPRESSION:? No evidence acute bony abnormality. ? Dictated by: Kevin Baltazar M.D. on 02/13/2023 at 8:46 ? ? Approved by: Kevin Baltazar M.D. on 02/13/2023 at 8:46 ? [facility] Narrative Medical decision making narrative: Patient is ambidextrous. Complains of left medial forearm injury at work yesterday. He works for a [employer]. He was lifting heavy rebar and felt a strain in his medial left proximal forearm. There is bruising to this area. No numbness or tingling. Patient is not on any blood thinners. No previous injury to the forearm. Has pain with flexion of the wrist and carrying things. After history and exam x-ray forearm MRI forearm MDM CC: Right forearm injury Complicating co-morbidities: None Data collected from: Patient Medical records reviewed: No recent visit for this complaint Differential considered: Includes but not limited to muscle tear muscle strain tendon tear tendon strain Exam documented above, pertinent findings include: Ecchymosis tenderness to the forearm Imaging studies independently reviewed: X-ray left forearm no acute finding, MRI forearm shows brachial radialis muscle tear Consultations: 12:50 p.m.. Spoke with Orthopedics, dr heather davis, no splinting indicated. She will follow up with patient in the office. Likely nonsurgical. Treatments: None indicated at this time Re-evaluations: Reviewed results with patient and my discussion with Orthopedics. L and I forms have been completed. Return precautions reviewed. Pain is controlled. Work note provided. Discussion: Appropriate for discharge home. Patient arm is neurovascularly intact. No deficits. Patient return precautions reviewed with him. Orthopedic provider has been provided. L and I forms completed. Work note provided. Patient agrees with treatment plan. He desires discharge home Diagnosis: Forearm muscle tear Discharge Plan Departure Patient Disposition: Home Clinical Impression: Muscle tear Instructions: DI for Forearm Muscle Strain Activity Restrictions/Additional Instructions: Please call provided orthopedic office today for office follow up appointment for your torn muscle in your forearm. You need to call Dr. Heather Davis. No using your left forearm until seen by orthopedic provider. May continue ibuprofen or Tylenol for pain. Work note has been provided for you. L and I forms have been completed as well. Referrals: Jalil Espinosa MD [Primary Care Provider] - Heather Davis MD [Physician] - Stand Alone Forms: Patient Portal/API, Work Release Note
[2023-02-13 13:00] VITALS: BP 152/86; PULSE 80; RESP 20; O2SAT 100
== END 2023-02-13 13:02 | disposition home or self-care (01) ==
PROVIDERS: Emergency Provider Emergency Medicine; Family Provider Family Medicine; PCP Family Medicine
DX: S56.912A Strain of unspecified muscles, fascia and tendons at forearm level, left arm, initial encounter (principal); X50.0XXA Overexertion from strenuous movement or load, initial encounter; Y99.0 Civilian activity done for income or pay
CPT/HCPCS: 73090; 73218; 99281; 99283

== ENCOUNTER 2023-03-20 06:38 | Day surgery (SDC) | payer OTHER, SELFPAY ==
[2023-03-08 11:07] VITALS: BMI 27.7
--- NOTE | 2023-03-20 | PATH_ITS ---
[facility] Accession Number: [id number] No. of containers..02 Tissue . 01 Material submitted: . PART A: breast - LEFT BREAST MASS PART B: breast - LEFT BREAST ANTERIOR MARGIN . 01 Diagnosis: A. Left Breast Mass, Excision: Male breast tissue with gynecomastoid hyperplasia and pseudoangiomatous stromal hyperplasia (gynecomastia). Negative for atypia, carcinoma in situ, and malignancy. . B. Left Breast, Anterior Margin, Excision: Male breast tissue with gynecomastoid hyperplasia and pseudoangiomatous stromal hyperplasia (gynecomastia), and focal usual ductal hyperplasia. Negative for atypia, carcinoma in situ, and malignancy. [facility] 03/28/2023 1511 Local . 01 Electronically signed: . aJnny Betancur MD, Pathologist NPI- [id number] . 01 Gross description: . A. Received: In formalin, labeled with the patient's name, , and left breast mass. Specimen: A previously inked lumpectomy. Weight: 13 grams. Measurement: 5.7 cm from blue to red, 3.5 cm from orange to yellow, and 1.5 cm from green to black. Skin Ellipse: Absent. Wire: Absent. Margins: Inked by the surgeon, however, inking scheme was not provided. The following pairs of colors are opposite one another: Red and blue, yellow and orange, green and black. Inking reinforced at the bench and no sutures are identified. Sliced: From red to blue into 13 slices. Lesion: One. Description: An ill-defined kim, firm nodule. Size: 0.4 x 0.3 x 0.3 cm. Slices Involved: Slice 4. Biopsy site: Not identified. Distance from margins: Adjacent to the green margin, 0.3 cm from the black margin, and greater than 0.5 cm from all remaining margins. Other: The remaining cut surfaces are yellow to white fibroadipose tissue with gritty fibrous tissue occupying approximately 40% of the cut surface and is concentrated adjacent to the green margin. No additional lesions are grossly identified. Fixation time: The specimen was removed on 03/20/2023, time not provided, cold ischemic time cannot be calculated, and total fixation time is approximately 65 hours. Submitted entirely as follows: A1-A2: Entire slice 1, perpendicular. A3: Intact slice 2. A4: Intact slice 3. A5: Intact slice 4. A6: Intact slice 5. A7: Intact slice 6. A8: Intact slice 7. A9: Intact slice 8. A10: Intact slice 9. A11: Intact slice 10. A12: Intact slice 11. A13: Intact slice 12. A14-A15: Slice 13 perpendicular. . B. Received in formalin labeled with the patient's name, and left breast anterior margin. Specimen: A yellow, lobulated soft tissue fragment with one surface inked green. Weight: 2 grams. Measurement: 3.0 x 2.5 x 0.8 cm. Skin Ellipse: Absent. Wire: Absent. Margin: One surface is inked green and is the presumed anterior surface; however, no designation is explicitly given. The green ink is reinforced and the opposite surface is inked black. Sliced: Into 10 slices. Lesion: No discrete lesions or biopsy sites are identified. Other: The cut surface is yellow to white fibroadipose tissue with gritty fibrous tissue occupying approximately 60% of the cut surface with no discrete lesions identified. Fixation: Specimen was removed on 03/20/2023, time not provided, cold ischemic time cannot be calculated, total fixation time is approximately 65 hours. The specimen is submitted entirely as follows: B1: Slice 1 perpendicular. B2: Marked slice 2. B3: Slice 3. B4: Slice 4. B5: Slice 5. B6: Slice 6. B7: Slice 7. B8: Slice 8. B9: Slice 9. B10: Slice 10 perpendicular. ([id number]) /MRV 03/22/2023 1627 Local . 01 Pathologist provided ICD-10: N62 . 01 CPT . 550673, [id number] Specimen Comment: A courtesy copy of this report has been sent to [phone] Performed at: 01 [facility] [address] [facility], [place], [place] [id number] MD Benito Taylor MD Phone: [phone]
[2023-03-20 07:20] VITALS: BMI 27.7
[2023-03-20] MEDS: LACTATED RINGERS 1,000 ML 100 ML IV (07:32)
[2023-03-20 07:34] VITALS: BP 144/79; PULSE 71; RESP 16; TEMP 36.9; O2SAT 97; BMI 27.7
--- NOTE | 2023-03-20 08:01 | PM.PREOP ---
Pre-operative Note Interval Note History & Physical reviewed/Exam performed by Physician: Yes Changes to H&P: No
[2023-03-20] MEDS: CEFAZOLIN 2 GM/100 ML PREMIX 100 ML IV (08:08)
[2023-03-20] MEDS: BUPIVACAINE 0.5% (PF) 30 ML VIAL INJ (08:21)
--- NOTE | 2023-03-20 08:22 | SUR.OPER ---
Supine on padded OR bed, head on pillow, arms secured on padded arm boards at <90 degrees abduction, legs uncrossed, safety belt at thigh, tape over blanket over lower legs.
[2023-03-20 08:55] VITALS: BP 128/78; PULSE 77; RESP 15; TEMP 36.5; O2SAT 97
--- NOTE | 2023-03-20 08:55 | P.OP_ITS ---
Operative Date/Time/Diagnoses Date of procedure: 03/20/23 Time of procedure: 11:06 Pre-op diagnosis: Left breast mass Post-op diagnosis: same Procedure & Clinicians Procedure: Left lumpectomy Same procedure as scheduled: Yes Indications: 62-year-old man with a painful left breast here for lumpectomy Surgeon: Alvin Dominguez Wardrobe Specialist: Chano Desouza Anesthesia Type: General Operative Notes Findings: Firm 8 cm areolar mass Specimen(s): other (Left breast mass) Estimated Blood Loss (mL): 10 Procedure in detail: Patient was brought to the operating room placed supine on the table. Anesthesia was induced he was intubated with a LMA. He was then prepped and draped in sterile fashion. He received 2 g of Ancef prior to skin incision. Time-out performed. A curvilinear incision was made around the inferior aspect of the areola. The areola was then elevated and the mass behind the areolar was grasped. Mass was approximately 8 cm in maximal diameter and was dissected out circumferentially with electrocautery. The mass was passed off the field labeled left breast mass and was inked in standard fashion. There was some firmness there remained just behind the areola which was resected and this was labeled anterior margin and the anterior aspect of this margin was marked in standard fashion. Hemostasis was achieved and the skin was closed in a running fashion with dissolvable suture. Tolerated the procedure well was transferred to recovery in stable condition. Complications: none Post-operative Disposition: same day surgery
[2023-03-20 08:56] VITALS: BP 126/77; PULSE 64; RESP 18; O2SAT 97
[2023-03-20 09:01] VITALS: BP 122/77; PULSE 66; RESP 17; O2SAT 98
[2023-03-20 09:06] VITALS: BP 140/90; PULSE 73; RESP 14; TEMP 36.5; O2SAT 93
[2023-03-20 09:21] VITALS: BP 143/83; PULSE 68; RESP 16; TEMP 36.5; O2SAT 96
== END 2023-03-20 09:34 | disposition home or self-care (01) ==
PROVIDERS: Family Provider Family Medicine; PCP Family Medicine; Referring Provider Surgery; Visit Provider Surgery
PROC: (CPT 19301; principal; 2023-03-20 08:00)
DX: N62 Hypertrophy of breast (principal); I10 Essential (primary) hypertension
CPT/HCPCS: 19301; 82962; J0690; J1100; J1885; J2250; J2405; J2704; J3010

== ENCOUNTER 2023-06-26 11:30 | Day surgery (SDC) | payer OTHER, SELFPAY ==
[2023-06-20 14:49] VITALS: BMI 25.8
--- NOTE | 2023-06-25 15:54 | PM.PREOP ---
Pre-operative Note Interval Note History & Physical reviewed/Exam performed by Physician: Yes Changes to H&P: No
[2023-06-26] VITALS (8 sets, daily range): BP systolic 107–141; BP diastolic 73–88; PULSE 71–85; RESP 10–17; TEMP 36.4–36.9; O2SAT 92–96; BMI 25.4
[2023-06-26] MEDS: LACTATED RINGERS 1,000 ML 42 ML IV (12:28)
--- NOTE | 2023-06-26 13:22 | SUR.PREOP ---
Dr Dominguez notified that patient has not taken home Flomax today and had difficulty voiding after last hemorrhoid procedure needing catheter.
[2023-06-26] MEDS: TAMSULOSIN 0.4 MG CAPSULE PO (13:35)
--- NOTE | 2023-06-26 14:01 | SUR.OPER ---
Lithotomy on padded OR bed, head on pillow, arms secured on padded arm boards at <90 degrees abduction. Legs secured in padded yellow fins stirrups.
[2023-06-26] MEDS: BUPIVACAINE LIPOSOME 266 MG/20 ML VIAL INJ (14:06)
[2023-06-26] MEDS: BUPIVACAINE 0.25% (PF) VIAL 30 ML INJ (14:07)
[2023-06-26] MEDS: DIBUCAINE 1% OINT 28 GM 1 APPLIC TOP (14:07)
[2023-06-26] MEDS: OXYCODONE IR 5 MG TABLET PO (14:52)
--- NOTE | 2023-07-05 17:03 | P.OP_ITS ---
Operative Date/Time/Diagnoses Date of procedure: 06/26/23 Time of procedure: 17:03 Pre-op diagnosis: Internal hemorrhoids Post-op diagnosis: same Procedure & Clinicians Procedure: Excisional Hemorrhoidectomy Same procedure as scheduled: Yes Indications: 63-year-old man with symptomatic prolapsing internal hemorrhoids here for hemorrhoidectomy Surgeon: Alvin Dominguez Click Yes if Unassisted: Yes Anesthesia Type: General Operative Notes Findings: Grade 3 internal hemorrhoid of the right posterior position. Specimen(s): other (Hemorrhoid) Estimated Blood Loss (mL): 10 Procedure in detail: The patient was brought to the operating room placed supine on the table. Bilateral lower extremity compression devices were applied. General anesthesia was induced and they were intubated with an LMA and placed into lithotomy position.. They were then prepped and draped in usual sterile fashion. Time-o ut was performed. Rectal block was performed by injecting 20 mL of Exparel into the intersphincteric groove. An internal examination of the anal canal was made. The right posterior pedicle freely prolapsed, there was minimal surrounding hemorrhoidal tissue.. The hemorrhoid pedicle was grasped elevated and excised with electrocautery off the internal sphincter. The mucosal defect was then closed with a running 3-0 Vicyrl suture. Hemostasis was checked. The procedure was then repeated for the right anterior and posterior. The specimens were passed off the field. Wound was irrigated with saline. Gelfoam coated in Dibucaine ointment 1% was then placed into the anal canal. Sponge and instrument counts were correct at the end of the procedure. They emerged from anesthesia were extubated and transferred to the postoperative care unit in stable condition. Complications: none Post-operative Condition: stable Disposition: same day surgery
== END 2023-06-26 15:11 | disposition home or self-care (01) ==
PROVIDERS: Family Provider Family Medicine; PCP Family Medicine; Referring Provider Surgery; Visit Provider Surgery
PROC: (CPT 46260; principal; 2023-06-26 13:00)
DX: K64.2 Third degree hemorrhoids (principal)
CPT/HCPCS: 46260; C9290; J1170; J2250; J2704; J3010

== ENCOUNTER → 2024-03-02 16:28 | Outpatient (CLI) | payer OTHER, SELFPAY ==
--- NOTE | 2024-03-02 16:33 | DI.RAD.S_ITS ---
PROCEDURE: XR SHOULDER LT MIN 2V INDICATIONS: SHOULDER PAIN TECHNIQUE: 3 views of the shoulder were acquired. COMPARISON: [facility], CR, XR SHOULDER RT MIN 2V, 02/16/2020, 10:32. FINDINGS: Bones: No acute fractures or dislocations. No suspicious bony lesions. Visualized ribs appear intact. [id number] acromioclavicular joint osteoarthrosis. Soft tissues: No suspicious soft tissue calcifications. IMPRESSION: No acute bony abnormality. [id number] acromioclavicular joint osteoarthrosis. Approved by: Federico Nicole M.D. on 03/03/2024 at 8:42
== END ==
LOC: RAD 16:31
PROVIDERS: Family Provider Family Medicine; PCP Family Medicine; Referring Provider Family Medicine; Visit Provider Family Medicine
DX: M25.512 Pain in left shoulder (principal); M19.012 Primary osteoarthritis, left shoulder
CPT/HCPCS: 73030

== ENCOUNTER → 2024-04-07 16:08 | Outpatient (CLI) | payer OTHER, SELFPAY ==
--- NOTE | 2024-04-07 16:09 | DI.MRI.S_ITS ---
PROCEDURE: MR SHOULDER LT WO CON INDICATIONS: EVALUATE LEFT ROTATOR CUFF TECHNIQUE: Noncontrast oblique coronal T2 fast spin echo with fat saturation, oblique sagittal T1 spin echo and T2 fast spin echo with fat saturation, axial T1 spin echo and T2 fast spin echo with fat saturation through the shoulder. COMPARISON: [facility], CR, XR SHOULDER LT MIN 2V, 03/02/2024, 16:38. [facility], CR, XR SHOULDER 1 VIEW LEFT, 03/25/2024, 8:15. FINDINGS: Image quality: Excellent. Rotator cuff: High-grade partial bursal sided tearing of the supraspinatus tendon is seen at the distal insertion with partial intrasubstance continuation at the remainder of the supraspinatus tendon and the anterior infraspinatus tendon. No definite disruption of articular sided fibers is seen. Findings are superimposed on at least moderate supraspinatus and infraspinatus tendinosis. Teres minor tendon is intact. There is high-grade partial articular sided tearing of the subscapularis tendon at the superior insertion. Grade 2 fatty infiltration is seen at the superior portion of the subscapularis muscle. The remaining rotator cuff muscles are normal in bulk. Bones and bursae: Mild cortical thickening and intermediate cortical signal are seen along the anterior proximal humeral cortex near the pectoralis major insertion, as seen on coronal and sagittal images only. No associated marrow replacing mass or soft tissue lesion is seen. No acute trabecular bone injury or fracture. Partial-thickness cartilage loss is seen in the central portion of the glenoid and medial humeral head with small marginal osteophytes. Moderate degenerative changes at the acromioclavicular joint subchondral cystic changes, subchondral edema, marginal osteophyte formation. There is a small amount of fluid in the subacromial/subdeltoid bursa. No significant glenohumeral effusion is seen. Capsule and soft tissues: Mild diffuse labral degeneration. The proximal biceps long head tendon is not visualized most likely secondary to chronic tendon tearing distal retraction. There is partial effacement of the normal fat signal in the rotator interval. The anterior band of the inferior glenohumeral ligament appears mildly thickened. IMPRESSION: 1. Focal cortical thickening and intermediate cortical signal at the anterior proximal humeral shaft near the pectoralis major insertion, which is seen only at the margins of the field of view of this exam. In retrospect, there is associated mild cortical irregularity on the prior radiographs from 03/02/2024. Findings most likely represent a benign chronic tug lesion related to the tendon insertion. There is no osseous or soft tissue mass or adjacent edema. If there are no associated symptoms in this location, consider follow-up radiographs in approximately 6 months to demonstrate stability. If patient has associated pain, consider further characterization with MRI of the humerus with without contrast. 2. High-grade partial bursal sided tearing of the posterior supraspinatus tendon at the distal insertion with moderate grade partial intrasubstance tearing involving the adjacent anterior supraspinatus and anterior infraspinatus tendon insertions. The articular sided fibers appear to remain intact. Moderate supraspinatus and infraspinatus tendinosis. 3. High-grade partial articular sided tearing of the subscapularis tendon at the distal insertion superimposed on chronic tendinosis. Grade 2 fatty infiltration of the subscapularis muscle. 4. Biceps long head tendon is not seen, likely due to chronic tendon tearing and distal retraction. 5. Grade 2-3 chondromalacia in the glenohumeral joint. Moderate osteoarthrosis at the acromioclavicular joint. 6. Small subacromial/subdeltoid bursal effusion or mild bursitis. 7. Partial effacement of the rotator interval fat and mild thickening of the inferior glenohumeral ligament are nonspecific, but can be seen in the setting of the clinical syndrome of adhesive capsulitis. Approved by: Federico Nicole M.D. on 04/08/2024 at 9:21
== END ==
LOC: MRI 16:09
PROVIDERS: Family Provider Family Medicine; PCP Family Medicine; Referring Provider Orthopaedic Surgery; Visit Provider Orthopaedic Surgery
DX: M75.112 Incomplete rotator cuff tear or rupture of left shoulder, not specified as traumatic (principal); M19.012 Primary osteoarthritis, left shoulder; M94.212 Chondromalacia, left shoulder; M25.512 Pain in left shoulder
CPT/HCPCS: 73221